=== PATIENT | male | born 1940 | race Two or more races ===

== ENCOUNTER 2022-05-30 11:37 | Inpatient (IN) | payer MEDICARE, MEDICAID ==
[~2022-05-30] VITALS: Ht 162.6 cm; Wt 61.7 kg
[2022-05-30 13:06] LABS: HEMATOCRIT. 33.3 % (42.0-52.0); HEMOGLOBIN. 11.5 g/dL (14.0-18.0); MEAN CORPUSCULAR HEMOGLOBIN 33.8 pg (28.0-32.0); MEAN CORPUSCULAR VOLUME 98.2 fL (80.0-94.0); MEAN PLATELET VOLUME 7.5 fl (7.4-10.4); PLATELET 246 x1000/uL (130-400); RED BLOOD CELL COUNT 3.39 mill/uL (4.7-6.1); RED CELL DISTRIBUTION WIDTH 13.7 % (11.6-14.6)
[2022-05-30 15:45] LABS: INR 1.1; PARTIAL THROMBOPLASTIN TIME 28.3 sec (23.4-31.0); PROTHROMBIN TIME 11.3 sec (9.6-11.0)
[2022-05-30 17:38] LABS: PLATELET ESTIMATE NORMAL
[2022-05-30] MEDS ORDERED: MAGNESIUM/ALUMINUM HYDROXIDE/SIMETHICONE 30ML UDC PO PRN (17:45)
[2022-05-30] MEDS ORDERED: ACETAMINOPHEN 325MG TABLET PO PRN ×2 (17:45)
[2022-05-30] MEDS ORDERED: CLONIDINE 0.1MG TABLET PO PRN (17:45)
[2022-05-30] MEDS ORDERED: GUAIFENESIN 200MG/10ML SUGAR FREE UDC PO PRN (17:45)
[2022-05-30] MEDS ORDERED: HYDROCODONE/ACETAMINOPHEN 5/325MG TABLET PO PRN (17:45)
[2022-05-30] MEDS ORDERED: IPRATROPIUM/ALBUTEROL 0.5-3(2.5)MG/3ML NEB NEB PRN (17:45)
[2022-05-30] MEDS ORDERED: NITROGLYCERIN 0.4MG TABLET SL SL PRN (17:45)
[2022-05-30] MEDS ORDERED: DILT-27 PO (18:00)
[2022-05-30] MEDS ORDERED: FINA5TAB11 PO (18:00)
[2022-05-30] MEDS ORDERED: APIX5TAB PO (18:00)
[2022-05-30] MEDS ORDERED: IOHEXOL-350 100 ML BOTTLE ONE (18:05)
[2022-05-30] MEDS ORDERED: APIXABAN 5 MG TABLET PO NR (18:15)
[2022-05-30] MEDS ORDERED: NALOXONE HCL 0.4MG/ML VIAL IV PRN (18:15)
[2022-05-30 20:33] LABS: CHLORIDE 101 mEq/L (98-107)
[2022-05-30 22:33] LABS: CREATINE KINASE MB FRACTION 2.2 ng/mL (0.5-3.6)
[2022-05-31] MEDS: FAMOTIDINE 20MG TABLET PO SCH ×3 (01:03→21:11)
[2022-05-31 01:20] LABS: CREATINE KINASE MB FRACTION 1.9 ng/mL (0.5-3.6)
[2022-05-31 05:33] LABS: BASOPHILS % 0.4 % (0.0-2.0); EOSINOPHILS % 2.7 % (0.0-5.0); HEMATOCRIT. 33.8 % (42.0-52.0); HEMOGLOBIN. 11.7 g/dL (14.0-18.0); LYMPHOCYTES % 10.9 % (20.0-50.0); MEAN PLATELET VOLUME 7.3 fl (7.4-10.4); MONOCYTES % 13.3 % (2.0-8.0); NEUTROPHILS % 72.7 % (40.0-76.0); PLATELET 252 x1000/uL (130-400); RED BLOOD CELL COUNT 3.45 mill/uL (4.7-6.1); RED CELL DISTRIBUTION WIDTH 13.8 % (11.6-14.6)
[2022-05-31 05:47] LABS: CHLORIDE 103 mEq/L (98-107)
[2022-05-31 05:52] LABS: CREATINE KINASE MB FRACTION 2.1 ng/mL (0.5-3.6)
[2022-05-31 06:30] LABS: FOLIC ACID (FOLATE) SERUM 19.9 ng/mL (>5.38)
[2022-05-31 06:43] LABS: PHOSPHORUS 3.6 mg/dL (2.5-4.9)
[2022-05-31 06:45] LABS: LDL CHOLESTEROL 68 mg/dL (5-100); T4 FREE 1.14 ng/dL (0.76-1.46)
[2022-05-31] MEDS ORDERED: DILTIAZEM HCL 180MG CAPSULE CD 24HR PO SCH (09:00)
[2022-05-31] MEDS: APIXABAN 5 MG TABLET PO SCH ×2 (09:50→18:24)
[2022-05-31] MEDS: FINASTERIDE 5MG TABLET PO SCH (11:29)
[2022-05-31] MEDS: FUROSEMIDE 40MG/4ML VIAL IVP SCH ×2 (11:31→18:26)
[2022-05-31 11:52] VITALS: BP 142/106
[2022-05-31 12:00] VITALS: BP 142/106
[2022-05-31 16:30] VITALS: BP 146/96
[2022-05-31 20:00] VITALS: BP 132/96
[2022-06-01] VITALS: BP 125/84
[2022-06-01 04:00] VITALS: BP 136/82
[2022-06-01] MEDS: FUROSEMIDE 40MG/4ML VIAL IVP SCH ×2 (07:15→19:54)
[2022-06-01 07:49] LABS: HEMATOCRIT 39.5 % (42.0-52.0); HEMOGLOBIN 13.6 g/dL (14.0-18.0); MEAN CORPUSCULAR HEMOGLOBIN 33.6 pg (28.0-32.0); MEAN CORPUSCULAR VOLUME 97.5 fL (80.0-94.0); PLATELET 335 x1000/uL (130-400); RED BLOOD CELL COUNT 4.05 mill/uL (4.7-6.1); RED CELL DISTRIBUTION WIDTH 13.7 % (11.6-14.6)
[2022-06-01 08:00] VITALS: BP 127/64
[2022-06-01] MEDS ORDERED: REGADENOSON 0.4 MG/5 ML IV SCH (08:30)
[2022-06-01 08:58] LABS: CHLORIDE 99 mEq/L (98-107)
[2022-06-01] MEDS: APIXABAN 5 MG TABLET PO SCH ×2 (09:00→19:54)
[2022-06-01] MEDS: FINASTERIDE 5MG TABLET PO SCH (09:00)
[2022-06-01] MEDS: FAMOTIDINE 20MG TABLET PO SCH ×2 (09:00→21:34)
[2022-06-01 09:10] LABS: PHOSPHORUS 3.9 mg/dL (2.5-4.9)
[2022-06-01] MEDS: METOPROLOL SUCCINATE 50MG ER TABLET PO SCH (11:00)
[2022-06-01 16:00] VITALS: BP 132/74
[2022-06-01 20:00] VITALS: BP 131/93
[2022-06-02] VITALS: BP 136/87
[2022-06-02 04:00] VITALS: BP 137/95
[2022-06-02 05:27] LABS: CHLORIDE 99 mEq/L (98-107)
[2022-06-02 05:34] LABS: PHOSPHORUS 3.8 mg/dL (2.5-4.9)
[2022-06-02 06:27] LABS: HEMATOCRIT 39.6 % (42.0-52.0); HEMOGLOBIN 13.7 g/dL (14.0-18.0); MEAN CORPUSCULAR HEMOGLOBIN 33.6 pg (28.0-32.0); MEAN CORPUSCULAR VOLUME 97.1 fL (80.0-94.0); PLATELET 334 x1000/uL (130-400); RED BLOOD CELL COUNT 4.07 mill/uL (4.7-6.1); RED CELL DISTRIBUTION WIDTH 13.6 % (11.6-14.6)
[2022-06-02 08:00] VITALS: BP 141/91
[2022-06-02] MEDS: FUROSEMIDE 40MG/4ML VIAL IVP SCH (09:25)
[2022-06-02] MEDS: METOPROLOL SUCCINATE 50MG ER TABLET PO SCH (09:25)
[2022-06-02] MEDS: APIXABAN 5 MG TABLET PO SCH (09:25)
[2022-06-02] MEDS: FAMOTIDINE 20MG TABLET PO SCH (09:25)
[2022-06-02] MEDS: FINASTERIDE 5MG TABLET PO SCH (09:25)
[2022-06-02] MEDS ORDERED: METOPROLOL SUCCINATE 50MG ER TABLET PO SCH (10:46)
[2022-06-02 12:00] VITALS: BP 114/80
[2022-06-02] MEDS ORDERED: NITR0.4T49 SL (15:01)
[2022-06-02] MEDS ORDERED: FURO40TA5 PO (15:01)
[2022-06-02] MEDS ORDERED: METO-385 PO (15:01)
[2022-06-02 15:51] VITALS: BP 114/80
[2022-06-02] MEDS ORDERED: POTASSIUM CHLORIDE 20MEQ TABLET SR PO NR (16:30)
[2022-06-02] MEDS ORDERED: COLCHICINE 0.6MG TABLET PO SCH (21:00)
[2022-06-03] MEDS ORDERED: FUROSEMIDE 40MG TABLET PO SCH (09:00)
== END 2022-06-02 16:27 | disposition home health service (06) | DRG 280 ==
LOC: ER 11:37 → MICUSO 16:53 → SUPCPDRO 21:47 → 7EST 05-31 10:58
PROVIDERS: ADMIT Internal Medicine; ATTEND Internal Medicine
DX: I11.0 Hypertensive heart disease with heart failure (principal); I50.23 Acute on chronic systolic (congestive) heart failure; I21.A1 Myocardial infarction type 2; E44.0 Moderate protein-calorie malnutrition; I31.39 Other pericardial effusion (noninflammatory); I42.9 Cardiomyopathy, unspecified; I48.91 Unspecified atrial fibrillation; D53.9 Nutritional anemia, unspecified; I16.0 Hypertensive urgency; E87.6 Hypokalemia; D63.8 Anemia in other chronic diseases classified elsewhere; I71.23 Aneurysm of the descending thoracic aorta, without rupture; Z79.899 Other long term (current) drug therapy; Z68.23 Body mass index [BMI] 23.0-23.9, adult; Z95.2 Presence of prosthetic heart valve
CPT/HCPCS: 36415; 71045; 71275; 78452; 80053; 80061; 82550; 82553; 82607; 82746; 83036; 83735; 83880; 84100; 84439; 84443; 84484; 85025; 85027; 85379; 93005; 93017; 93306; 93970; 97116; 97162; 97166; 97535; 99285; A9500; J1940; J2785; Q9967